=== PATIENT | female | born 1955 | race Caucasian/White ===

== ENCOUNTER 2017-01-03 05:21 | Inpatient (IN) | payer OTHER ==
[~2017-01-03] VITALS: Ht 175.3 cm; Wt 107.5 kg
--- NOTE | ~2017-01-03 | O ---
[facility] [place] [address] OPERATIVE REPORT Name: FORTINO AWAD Room #: 428-P [facility] IN M.R.#: [id number] Admission: 01/03/17 Attend Phys: Sandoval Miranda MD Discharge: Date of : 57 Report #: [id number] THIS REPORT FOR: //name// CC: Roseanne Miranda PREOPERATIVE DIAGNOSIS: Right foot osteomyelitis. POSTOPERATIVE DIAGNOSIS: Right foot osteomyelitis. PROCEDURE: Right sttvj-xmu-kfsc amputation. SURGEON: Sandoval Miranda MD ANESTHESIA: General. ESTIMATED BLOOD LOSS: Minimal. DRAINS: One Hemovac drain was placed. ESTIMATED BLOOD LOSS: 20 mL. CENTRIFUGAL CHILLER TECHNICIAN: LILIBETH Sinha for positioning and safe performance of the procedure. TOURNIQUET TIME: One hour. DESCRIPTION OF PROCEDURE: The patient was brought to the operating room where she was placed under general anesthesia. Once under adequate general anesthesia, her right lower extremity was prepped and draped in a sterile manner. The extremity was elevated and tourniquet placed to 350 mmHg. A fishmouth type incision about the mid to distal third of the right lower extremity was then made. This was dissected sharply to the soft tissue, which was then subsequently incised identifying the posterior tibial and peroneal vessels, which were tagged for layer ligation. The tibia and the fibular were then subsequently exposed and transected with an oscillating saw. The anterior tibia was beveled with the oscillating saw and the distal extremity was then removed knee amputation. The posterior tibial and peroneal vessels were then suture ligated with 0 silk suture. The wound was irrigated copiously and closed with #1 Vicryl in the deep fascia, 2-0 Vicryl in portions of the subcutaneous tissues and 2-0 nylon and jarett for the skin. Wounds were dressed with Xeroform, 4 x 4s, and sterile soft compressive dressing was placed. Tourniquet was let down approximately one hour. There were no complications [address] [address] OPERATIVE REPORT Name: FORTINO AWAD Room #: 428-P [facility] IN ..#: [id number] Admission: 01/03/17 Attend Phys: Sandoval Miranda MD Discharge: Date of : 57 Report #: [id number] from the procedure. The patient tolerated the procedure well and went to the recovery room without incident. <ELECTRONICALLY SIGNED> By: Sandoval Miranda MD 01/04/17 1102 0832 0924 Sandoval Miranda MD /nt
--- NOTE | ~2017-01-03 | EKG ---
[place] [address] [facility] [facility] [employer] [place] [address] ELECTROCARDIOGRAM REPORT Name: FORTINO AWAD Room #: 150-3 ADM IN M.R.#: [id number] Admission: 01/03/17 Attend Phys: Sandoval Miranda MD Discharge: Date of : 57 Report #: [id number] THIS REPORT FOR: //name// [facility] Test Date: 2017-01-03 Test Time: 06:31:05 Pat Name: FORTINO AWAD Department: Room: 150 3 Gender: F Banquet Coordinator: FRANKIE : 1955 Requested By: Sandoval Miranda Order Number: [id number] MD: Ozzie Yee Measurements Intervals [place] Rate: 69 P: 58 WV: 138 QRS: 49 QRSD: 111 T: 239 QT: 411 QTc: 441 Interpretive Statements Technically poor tracing Sinus rhythm Multiple ventricular premature complexes Borderline repolarization abnormality No previous ECG available for comparison Electronically Signed On 01-03-2017 7:48:33 CDT by Ozzie Yee [email or web address] <ELECTRONICALLY SIGNED> By: Ozzie Yee MD, [facility] 01/03/17 0748 0631 0 Ozzie Yee MD, FACC /EPI
--- NOTE | ~2017-01-03 | S ---
[facility] [place] [address] SURGICAL PATH RPT PROCEDURE Name: FORTINO QUINONES Room #: 428-P ADM IN M.R.#: [id number] Admission: 01/03/17 Date of : 57 Discharge: Report #: [id number] Path Case #: [id number] PATHOLOGY REPORT COLLECTION DATE: 01/03/2017 RECEIVED DATE: 01/03/2017 SUBMITTING PHYS: Dr. Sandoval Miranda OTHER PHYS: Dr. Roseanne Hernandez SPECIMEN(S) RECEIVED: A.Right below knee amputation * * * * * * * * * * * * FINAL DIAGNOSIS: Leg, right, below knee amputation; - Ulceration associated with gangrenous necrosis extending into underlying subcutaneous tissue as well bone showing acute osteomyelitis and bone destruction. - Anterior and posterior tibial vessels showing moderate atherosclerosis. - Skin margin viable and unremarkable. - Bone margin grossly viable. (IUV:csd; d/t: 01/05/2017) PATHOLOGIST: Jovana Velazquez M.D. REPORT ELECTRONICALLY SIGNED BY: Jovana Velazquez M.D. DATE/TIME: 01/05/2017 16:54 * * * * * * * * * * * * GROSS PATHOLOGY: The specimen is received fresh in an orange biohazard bag and labeled "Fortino Quinones and right below knee amputation." Received is a right lower extremity specimen amputated through the tibia and fibula with a smooth resection margin. The specimen measures 24.3 cm from heel to toe, 13.5 cm from heel to soft tissue resection margin, 22.5 cm from heel to tibial bone resection margin, and 26.0 cm from heel to fibular bone resection margin. The leg is distorted and bent inwards at the medial malleolus. The skin, soft tissue, and bone resection margins are grossly viable and unremarkable. The skin is shah, flaky, and wrinkled. There is a 4.5 x 3.4 cm variegated bright red to yellow-shah, poorly circumscribed, and partially crusted ulcer located at the medial malleolus. The ulcer grossly extends to and involves the underlying bone. All 5 digits with thickened, dark yellow nails are present. Sectioning of the anterior and posterior tibial vasculature reveals patent and slightly calcified lumens. A1 longitudinal section of skin and soft tissue margin (inked) [place] [address] [place] [address] SURGICAL PATH RPT PROCEDURE Name: FORTINO QUINONES Maira Room #: 428-P ADM IN M.R.#: [id number] Admission: 01/03/17 Date of : 57 Discharge: Report #: [id number] Path Case #: [id number] A2 ulcer A3 bone underlying ulcer, following decalcification A4 anterior tibial vasculature, following decalcification A5 posterior tibial vasculature, following decalcification (TTL; 01/04/2017) CLINICAL HISTORY: Right leg osteomyelitis INITIAL CPT CODE(S): A; 68411, 10947 Professional services performed by [facility] at [facility] [address] [place] [id number] Technical services performed by [facility] at [address] [place] [address], [address], [place] [address]. [facility] [address] [place] [address] PHONE: [phone] DIRECTOR: Scott Newsome M.D. * * * END OF REPORT * * *
--- NOTE | ~2017-01-03 | H ---
[facility] [address] [address] [place] [address] HISTORY AND PHYSICAL Name: DELMIFORTINO Maira Room #: 428-P [facility] IN M.R.#: [id number] Admission: 01/03/17 Attend Phys: Sandoval Miranda MD Discharge: 01/06/17 Date of : 57 Report #: [id number] THIS REPORT FOR: //name// For History and Physical, please see office documentation/handwritten note in the patient's medical record. <ELECTRONICALLY SIGNED> By: Sandoval Miranda MD 01/07/17 1344 1513 Sandoval Miranda MD /
[~2017-01-03 05:21] MED LIST: ALDACTONE25 MG PO; ALPRAZOLAM 0.50.5 M1 PO; ALUM-MAG HYDRO360 ML PO; ARGINAID POWDE1 EACH PO; COLACE100 MG PO; FLONASE 0.05%50 MCG NASAL; GEODON60 MG PO; HUMALOG100 UNIT/1 SUBQ; KLOR-CON20 ME1 PO; LATUDA60 MG PO; LEVOTHYROXINE 0.1 MG PO; LIDODERM 5%1 PATCH TOP; MAGOX 400400 MG PO; METOLAZONE 2.52.5 M1 PO; MIRALAX17 GM PO; MYVITALIFE1 EACH PO; OXAYDO7.5 MG PO; PAROXETINE HCL20 MG PO; PEPCID20 MG PO; PROBIOTIC1 EAC1 PO; PROPRANOLOL 1010 MG PO; PROTEIN POWDER454 GM PO; REGLAN 10 MG TA10 MG PO; REMERON15 MG PO; SENNA8.6 MG PO; TOPAMAX 100 MG100 MG PO; TUMS PO; TYLENOL325 MG PO; VANCO1GM IV; VITAMIN D1000 UNI1 PO
[2017-01-03 07:00] VITALS: BP 141/90
[2017-01-03 07:13] LABS: CALCIUM 9.8 mg/dL (8.5-10.1); CREATININE 0.9 mg/dL (0.6-1.3)
[2017-01-03 07:19] LABS: POTASSIUM 2.9 mmol/L (3.5-5.1)
[2017-01-03 09:56] VITALS: BP 142/94
[2017-01-03 15:26] VITALS: BP 143/76
[2017-01-03 20:00] VITALS: BP 131/78
[2017-01-03 20:45] VITALS: BP 142/78
[2017-01-04 04:00] VITALS: BP 140/82
[2017-01-04 05:25] LABS: HEMATOCRIT 33.1 % (37.0-47.0); HEMOGLOBIN 11.2 gm/dL (12.0-15.0)
[2017-01-04 08:10] VITALS: BP 157/73
[2017-01-04 11:00] VITALS: BP 124/68
[2017-01-04 15:15] VITALS: BP 106/64
[2017-01-04 20:00] VITALS: BP 130/82
[2017-01-05 04:30] VITALS: BP 128/84
[2017-01-05 09:11] VITALS: BP 114/55
[2017-01-05 15:43] VITALS: BP 120/66
[2017-01-05 20:00] VITALS: BP 131/75
[2017-01-06 04:00] VITALS: BP 115/75
[2017-01-06 07:45] VITALS: BP 114/64
== END 2017-01-06 16:01 | DRG 617 ==
LOC: 4E 05:21 → TBA 05:21 → PRE 08:40 → 4E 09:22 → PRE 09:23 → 4E 01-06 16:01
PROVIDERS: Orthopaedic Surgery Foot and Ankle Surgery
PROC: 0Y6H0Z3 Detachment at Right Lower Leg, Low, Open Approach (ICD-10-PCS; principal; 2017-01-03)
DX: E11.69 Type 2 diabetes mellitus with other specified complication (principal); M86.8X7 Other osteomyelitis, ankle and foot; I10 Essential (primary) hypertension; E03.9 Hypothyroidism, unspecified; F41.9 Anxiety disorder, unspecified; E11.9 Type 2 diabetes mellitus without complications; E87.6 Hypokalemia; E66.01 Morbid (severe) obesity due to excess calories; M14.671 Charcot's joint, right ankle and foot; F32.9 Major depressive disorder, single episode, unspecified; M19.90 Unspecified osteoarthritis, unspecified site; J44.9 Chronic obstructive pulmonary disease, unspecified; E07.9 Disorder of thyroid, unspecified; Z90.49 Acquired absence of other specified parts of digestive tract; Z90.710 Acquired absence of both cervix and uterus; Z79.4 Long term (current) use of insulin; Z68.35 Body mass index [BMI] 35.0-35.9, adult; Z88.2 Allergy status to sulfonamides; Z88.6 Allergy status to analgesic agent; Z82.61 Family history of arthritis; Z88.0 Allergy status to penicillin; Z82.49 Family history of ischemic heart disease and other diseases of the circulatory system; Z88.1 Allergy status to other antibiotic agents; Z87.891 Personal history of nicotine dependence
CPT/HCPCS: 10783; 50010; 50101; 50386; 51412; 53000; 56524; 56525; 57091; 62110; 62900; 64037; 70005